=== PATIENT | female | born 1965 | race African-American/Black ===

== ENCOUNTER → 2021-03-31 15:43 | Outpatient (CLI) | payer OTHER, SELFPAY ==
--- NOTE | ~2021-03-31 | MM_ITS ---
EXAMINATION: MM screening [facility] BI w [facility] HISTORY: Screening mammogram TECHNIQUE: Craniocaudal and mediolateral oblique 3-D tomosynthesis images were obtained and synthetic 2-D images were generated. CAD analysis was submitted and interpreted. COMPARISON: 11/04/2016, 09/30/2015 bilateral screening mammogram examinations BREAST PARENCHYMAL COMPOSITION: The breasts are heterogeneously dense, which may obscure small masses . FINDINGS: There is no evidence of suspicious mass, calcification, or architectural distortion to sugg est malignancy in either breast. There has been no suspicious interval change. IMPRESSION: 1. No mammographic evidence of malignancy. 2. Recommend routine screening mammography in one year. BI-RADS Category 1: Negative Reviewed, dictated and finalized at location A. RR[facility] MACHINE
== END ==
PROVIDERS: PCP Internal Medicine; Visit Provider Obstetrics & Gynecology
DX: Z12.31 Encounter for screening mammogram for malignant neoplasm of breast (principal)
CPT/HCPCS: 77063; 77067

== ENCOUNTER 2023-01-09 10:31 | Outpatient (CLI) | payer OTHER, SELFPAY ==
[2023-01-09 19:49] LABS: Alanine Aminotransferase 26 U/L (6-35); Albumin Level 4.6 g/dL (3.5-5.1); Alkaline Phosphatase 70 U/L (38-126); Anion Gap 5 mmol/L (8-16); Aspartate Amino Transferase 67 U/L (14-36); Bilirubin,Total 0.4 mg/dL (0.2-1.3); Blood Urea Nitrogen 10 mg/dL (7-17); Calcium 9.8 mg/dL (8.4-10.2); Carbon Dioxide 31 mmol/L (22-30); Chloride 102 mmol/L (98-107); Cholesterol 240 mg/dL (0-200); Estimated Glomerular Filt Rate > 60; Glucose 97 mg/dL (65-110); HDL Direct 89 mg/dL; Potassium 4.4 mmol/L (3.4-5.0); Sodium 138 mmol/L (137-145); Triglycerides 51 mg/dL (<150)
[2023-01-09 20:00] LABS: LDL Cholesterol Direct 113 mg/dL
== END 2023-01-09 10:32 | disposition home or self-care (01) ==
LOC: ANHGOSHLAB 10:33
PROVIDERS: PCP Family Medicine; Visit Provider Family Medicine
DX: E78.00 Pure hypercholesterolemia, unspecified (principal); Z13.228 Encounter for screening for other metabolic disorders; Z13.29 Encounter for screening for other suspected endocrine disorder
CPT/HCPCS: 36415; 80053; 80061; 84443

== ENCOUNTER 2023-09-11 13:58 | Outpatient (CLI) | payer OTHER, SELFPAY ==
--- NOTE | 2023-09-11 14:53 | ECG_ITS ---
SEE SCANNED COPY FOR CONFIRMED REPORT MTDD
[2023-09-11 15:32] LABS: Basophils Percent Auto 0.4 % (0.2-1.2); Eosinophils Absolute Auto 0.1 K/mm3 (0-0.3); Eosinophils Percent Auto 1.8 % (0-4.4); Hematocrit 39.5 % (37.0-47.0); Hemoglobin 12.4 g/dL (12.0-15.0); Immature Granulocyte Absolute 0.01 K/mm3 (0.00-0.031); Immature Granulocyte Percent A 0.2 % (0-0.5); Lymphocytes Absolute Auto 1.78 K/mm3 (0.9-3.2); Lymphocytes Percent Auto 31.6 % (18.3-44.2); Mean Corpuscular HGB Conc 31.4 g/dl (32-36); Mean Corpuscular Hemoglobin 29.5 pg (26-34); Mean Platelet Volume 9.4 fl (7.4-10.4); Monocytes Absolute Auto 0.4 K/mm3 (0.1-0.6); Monocytes Percent Auto 7.5 % (2.6-8.5); Neutrophils Absolute Auto 3.3 K/mm3 (1.3-6.7); Neutrophils Percent Auto 58.5 % (45.5-73.1); Platelet Count Result 252 k/mm3 (150-375); Red Cell Distribution Width 12.8 % (11.5-14.5); White Blood Count 5.6 K/mm3 (4.5-10.0)
[2023-09-11 15:44] LABS: INR 0.9
[2023-09-11 15:45] LABS: Partial Thromboplastin Time 25.8 Seconds (22.3-36.8)
[2023-09-11 16:17] LABS: Alanine Aminotransferase 35 U/L (6-35); Albumin Level 4.8 g/dL (3.5-5.1); Alkaline Phosphatase 68 U/L (38-126); Anion Gap 6 mmol/L (4-12); Aspartate Amino Transferase 69 U/L (14-36); Bilirubin,Total 0.6 mg/dL (0.2-1.3); Blood Urea Nitrogen 12 mg/dL (7-17); Calcium 10.4 mg/dL (8.4-10.2); Carbon Dioxide 32 mmol/L (22-30); Chloride 103 mmol/L (98-107); Estimated Glomerular Filt Rate > 60; Glucose 98 mg/dL (65-110); Sodium 141 mmol/L (137-145)
== END 2023-09-11 13:59 | disposition home or self-care (01) ==
LOC: ANHSURGERY 14:03
PROVIDERS: PCP Family Medicine; Visit Provider Urology
DX: N81.2 Incomplete uterovaginal prolapse (principal); Z86.39 Personal history of other endocrine, nutritional and metabolic disease; Z01.818 Encounter for other preprocedural examination
CPT/HCPCS: 36415; 80053; 85025; 85610; 85730; 86850; 86900; 86901; 93005

== ENCOUNTER 2023-09-18 01:14 | Day surgery (SDC) | payer OTHER, SELFPAY ==
[2023-09-11 14:12] VITALS: BP 114/62; PULSE 64; RESP 16; TEMP 36.4; O2SAT 100; BMI 24.5
--- NOTE | 2023-09-11 14:28 | PC.NURSE ---
Report to the Outpatient Waiting Room, entrance under the green pavilion located off [facility], at time ___9:00AM____ on date ___09/18/23____. Planned Procedure Time: __11:00AM . Time changes happen often and if your time is changed the preop area will call you the afternoon before. - You and your visitor will be asked to self-screen and do not enter if you have any COVID symptoms. - A mask is optional within the hospital at this time. Patients may have clear liquids (water, carbonated beverages, clear teas, apple juice) until 3 hours prior to surgery with a maximum of 20 ounces. - No food from midnight until time of surgery. Take the following medications with a SIP of water the morning of surgery: NONE DO NOT STOP ANY OF YOUR OTHER PRESCRIPTION MEDICATIONS PRIOR TO SURGERY ?EXCEPT THE FOLLOWING Medications to discontinue per physician ___HOLD IBUPROFEN 7 DAYS PRE-OP PER DR ROBERSON Date to take last dose____09/10/23 Please no make-up, nail kinyarwanda, hairspray, perfume, deodorant, or body powder the day of surgery. No jewelry (including any body piercings) or valuables the day of surgery, leave them at home. Please take a shower or bath the night before, or the morning of, surgery with an antibacterial soap. Wear comfortable, loose fitting clothing. - Jewelry must be removed prior to entering the operating room. Rings and piercings that are not removed may be cut off. - The hospital will not accept responsibility for valuables. - Please leave all valuables, including medications, at home the day of surgery. If you are going home after surgery, a licensed racing car driver must drive you home. - NO public transportation without another adult if you receive anesthesia. - We recommend that an adult stay with you for 24 hours following discharge. - We also recommend that you do not drive, make important decision, drink alcoholic beverages, or take any drugs that were not prescribed by your health care provider for at least 24 hours after your discharge time. Follow any additional instructions given to you from your surgeon. If you or anyone in your household have experienced Covid symptoms in the past week, please notify your surgeon or the nurse liaison at the phone number below for possible testing. Telephone instructions given to ____PATIENT and asked if any additional questions and then verbalized understanding. Patient advised to call surgeon office or pre surgery nurse liaison [phone] if any additional questions.
--- NOTE | 2023-09-15 11:53 | PM.IMHP ---
H&P: HPI History of Present Illness Date/Time: 09/15/23 11:53 Chief Complaint: Pelvic organ prolapse Narrative: Uterine prolapse. No stress incontinence. Desires surgical intervention Review of Systems Review of Systems: All systems reviewed & are unremarkable except as noted in HPI and below PMFSH Past Medical History Medical History Acid reflux Hypercholesteremia Vaginal delivery x2 Surgical History Surgical History History of cholecystectomy Family History Family History Mother Family history of renal failure Grandparent Hypertension grandmother Other Diabetes mellitus great aunt Social History Social History Smoking status: Never smoker Alcohol intake: current Drinks per week: 2 Substance use: never Substance use type: does not use Lack of Transportation: No Lack of Food: Sometimes True Current Housing: I Do Not Have Housing Concerned About Future Housing: No Difficulty Paying Gas/Electric Bills: No Difficulty Paying for Meds: No Currently Unemployed: No Education: Master's Degree or Higher Difficulty w/ Childcare or Family Care: No Living arrangements: with family Additional living arrangements comments: SPOUSE Occupation/Education: occupation Gender identity (if verbalized by the patient): Female Spiritual care concerns: No Agree to blood products: Yes Meds Home Medications and Allergies Home Medications Medication Instructions Recorded Confirmed Type omeprazole 20 mg capsule,delayed 20 mg PO DAILY #30 caps 05/30/23 09/11/23 Rx release simvastatin 20 mg tablet 20 mg PO DAILY #90 tabs 06/05/23 09/11/23 Rx ascorbic acid (vitamin C) 1,000 mg 1 g PO DAILY 09/11/23 09/11/23 History tablet cholecalciferol (vitamin D3) 50 50 mcg PO DAILY 09/11/23 09/11/23 History mcg (2,000 unit) capsule coenzyme Q10 100 mg capsule 100 mg PO DAILY 09/11/23 09/11/23 History (CoQ-10) ibuprofen 200 mg capsule 400 mg PO Q6H PRN Pain 09/11/23 09/11/23 History fpgqllfejwiv-Wv-bbju-minerals 18 1 tablet PO DAILY 09/11/23 09/11/23 History mg-0.4 mg tablet Allergies Allergy/AdvReac Type Severity Reaction Status Date / Time venom-wasp Allergy Severe Swelling Verified 09/11/23 14:08 OXYCODONE HCL AdvReac Severe N/V Uncoded 09/11/23 14:08 Exam Narrative: No acute distress Normal breathing Alert orient x3 Cystocele to the introitus Loss of apical support a -1 Assessment and Plan Assessment and plan (1) Uterine prolapse: Code(s): N81.4 - Uterovaginal prolapse, unspecified Status: Acute Assessment and Plan: Presents for colpopexy. Understands risks of bleeding, infection, damage to surrounding organs, damage to urinary tract, vaginal mesh extrusion, urinary tract mesh erosion obstructive voiding increasing to procedure, hip and leg pain postoperative incontinence, diskitis. She agrees to proceed
[2023-09-18] VITALS (12 sets, daily range): BP systolic 109–144; BP diastolic 61–77; PULSE 41–69; RESP 12–20; TEMP 36.1–37.5; O2SAT 99–100; BMI 24.1
--- NOTE | 2023-09-18 05:01 | WPDHPUPDATE1 ---
History and Physical Update Update Date/Time: 09/18/23 05:01 History and Physical has been reviewed, including an updated exam of the patient. There are NO changes in the patient's condition. Risks, benefits, and alternatives have been discussed and questions answered. Patient agrees to proceed with procedure.
[2023-09-18] MEDS: LACTATED RINGERS 1,000 ML 30 ML IV CONT ×3 (09:30→19:45)
[2023-09-18] MEDS: ACETAMINOPHEN 500 MG TABLET 1000 MG PO (09:47)
[2023-09-18] MEDS: KETOROLAC 15 MG/ML VIAL (*BKC) IV PUSH (09:47)
--- NOTE | 2023-09-18 11:02 | WPDANESEPPF ---
Anes - Initial Pre Proc Eval Procedure: Operation Date: 09/18/23 11:00 Proposed Procedures p Robotic Sacrocolpopexy, Urethral Sling - Ketan John MD s Robotic Supracervical Hysterectomy with Bilateral Salpingo Oophorectomy - Durga Horton MD Date/Time: 09/18/23 11:02 Surgeon: Ketan John MD Pre Op Diagnosis: incomplete uterovaginal prolapse Patient Data Age: 58 Gender: F Height: 1.63 m Weight: 63.9 kg Last Vital Signs Temp 97.3 F L 09/18/23 10:25 Pulse 59 L 09/18/23 10:25 Resp 16 09/18/23 10:25 BP 132/69 09/18/23 10:25 Pulse Ox 100 09/18/23 10:25 O2 Del Method Room Air 09/18/23 10:25 Allergies Allergy/AdvReac Type Severity Reaction Status Date / Time venom-wasp Allergy Severe Swelling Verified 09/18/23 10:24 OXYCODONE HCL AdvReac Severe N/V Uncoded 09/11/23 14:08 Home Medications Medication Instructions Recorded Confirmed Type omeprazole 20 mg capsule,delayed 20 mg PO DAILY #30 caps 05/30/23 09/11/23 Rx release simvastatin 20 mg tablet 20 mg PO DAILY #90 tabs 06/05/23 09/11/23 Rx ascorbic acid (vitamin C) 1,000 mg 1 g PO DAILY 09/11/23 09/11/23 History tablet cholecalciferol (vitamin D3) 50 50 mcg PO DAILY 09/11/23 09/11/23 History mcg (2,000 unit) capsule coenzyme Q10 100 mg capsule 100 mg PO DAILY 09/11/23 09/11/23 History (CoQ-10) ibuprofen 200 mg capsule 400 mg PO Q6H PRN Pain 09/11/23 09/11/23 History nmygyckhdyfs-Fn-iyra-minerals 18 1 tablet PO DAILY 09/11/23 09/11/23 History mg-0.4 mg tablet Patient hx anesthesia problems: none Family hx anesthesia problems: none Results Review: All pre-operative results and documents have been reviewed as part of the pre-operative evaluation. [facility] Past Medical History Medical History Acid reflux Hypercholesteremia Vaginal delivery x2 Surgical History Surgical History History of cholecystectomy Family History Family History Mother Family history of renal failure Grandparent Hypertension grandmother Other Diabetes mellitus great aunt Social History Social History Smoking status: Never smoker Alcohol intake: current Drinks per week: 2 Substance use: never Substance use type: does not use Lack of Transportation: No Lack of Food: Sometimes True Current Housing: I Do Not Have Housing Concerned About Future Housing: No Difficulty Paying Gas/Electric Bills: No Difficulty Paying for Meds: No Currently Unemployed: No Education: Master's Degree or Higher Difficulty w/ Childcare or Family Care: No Living arrangements: with family Additional living arrangements comments: SPOUSE Occupation/Education: occupation Gender identity (if verbalized by the patient): Female Spiritual care concerns: No Agree to blood products: Yes Anes - Eval Final PreProcedure Day of Procedure 09/18/23 11:02 Patient weight: normal Heart: regular rate and rhythm Lungs: clear to auscultation Airway: Mallampati scale Neurological: alert and oriented Last oral intake: >/= 8 hours ASA classification: II Emergent: no Anesthetic plan: proceed Anesthesia type and monitoring: general ETT and standard monitoring Results Review: All pre-operative results and documents have been reviewed as part of the pre-operative evaluation. Informed Consent: The patient's anesthetic plan and its attendant risks and benefits were discussed with the patient/family/POA. Questions were solicited and answers provided to the satisfaction of the patient/family/POA.
--- NOTE | 2023-09-18 11:43 | WPDHPUPDATE1 ---
History and Physical Update Update Date/Time: 09/18/23 11:43 History and Physical has been reviewed, including an updated exam of the patient. There are NO changes in the patient's condition. Risks, benefits, and alternatives have been discussed and questions answered. Patient agrees to proceed with procedure.
[2023-09-18] MEDS: ceFAZolin 2 GM/D5W 50 ML 2 GM/50 ML BAG IVPB (11:49)
[2023-09-18] MEDS: metroNIDAZOLE 500 MG/ISO 100ML 500 MG/100 ML BAG 100 MG IVPB ×2 (12:19→21:03)
[2023-09-18] MEDS: BUPIVACAINE/EPINEPHRINE 0.5% 50 ML VIAL 20 ML INFILTRATE (12:31)
--- NOTE | 2023-09-18 12:53 | P.OP_ITS ---
Procedure Note - Detailed Date of Procedure 09/18/23 Pre-op Diagnosis incomplete uterovaginal prolapse Post-op Diagnosis Same Procedure Performed Robotic assisted laparoscopic supracervical hysterectomy with bilateral salpingo-oophorectomy. Surgeon Durga Horton MD Cylinder Block Hole Reliner Sunil Anesthesia General Indications Uterovaginal prolapse Findings Uterus with multiple small fibroids, normal fallopian tubes bilateral and normal appearing atrophic ovaries. Description of Procedure After informed consent was obtained she was taken to the operating room and general endotracheal anesthesia was administered. She was placed in low lithotomy position. She was and prepped and draped in sterile fashion. Montes De Oca catheter placed in bladder. Attention was turned to the vagina speculum was inse rted. Single-tooth tenaculum placed on anterior lip of the cervix. An acorn uterine manipulator was placed in the cervical canal. Attention was turned to the surgery console after Dr. John placed ports and attached robotic arms. At the surgery console, the right round ligament was ligated with vessel sealer. Anterior leaf of broad ligament dissected anteriorly. The vesicouterine peritoneum was dissected from the upper cervix. The infundibulopelvic ligament was ligated and the posterior broad ligament was dissected. The ascending uterine arteries were ligated. The right uterine artery was ligated. Attention turned to left round ligament which was ligated. The anterior leaf of broad ligament dissected anteriorly. The vesicouterine peritoneum was dissected from the upper cervix. The infundibulopelvic ligament was ligated and the posterior broad ligament was dissected. The ascending uterine arteries were ligated. The uterine arteries ligated. The uterus was amputated from the cervix with cautery. The uterus and fallopian tubes and ovaries placed in endocath bag. An near the right vessels was cauterized and hemostasis noted. Dr. John resumed his portion of the case. Estimated Blood Loss 10 Drains No Packing No Pathology Yes (uterus with right and left fallopian tubes and ovaries) Complications No immediate complications Condition Stable Disposition PACU [facility] Billing Surgery - Charge Forward: Surgery Billing
--- NOTE | 2023-09-18 14:08 | W.PM.PROC2 ---
Procedure Note - Detailed Date of Procedure 09/18/23 Pre-op Diagnosis incomplete uterovaginal prolapse Post-op Diagnosis Same Procedure Performed Robotic assisted laparoscopic sacral colpopexy Cystoscopy Surgeon Ketan John MD Anesthesia General Indications A woman with uterine prolapse without stress incontinence. She desires surgical correction. She is here for the above. She understands risks of bleeding, infection, diskitis, damage to surrounding organs, bowel injury, bowel obstruction, mesh related complications including exposure and extrusion, postoperative voiding dysfunction including incontinence and retention, need for ancillary procedures, dyspareunia, recurrence of prolapse, and other perioperative intraoperative postoperative complications. She agrees to proceed. Findings See below Description of Procedure She was correctly identified. Informed consent obtained. She from the operating room. She was given general anesthesia. She was given appropriate perioperative antibiotics. She was placed a low lithotomy position. Pressure points were padded. A time-out performed. I marked out the skin 3 fingerbreadths cephalad to the umbilicus. I anesthetized the skin. I incised the skin. I dissected down to the fascia. I grasped the fascia with Nicolas clamps. I entered the fascia sharply in a Russ type technique. I placed sutures for later fascial closure. I placed a midline trocar. I examined the abdomen. There is no sign of any injury. Under direct vision I placed 2 additional trocars in the right upper quadrant and 2 additional trocars the left upper quadrant. She was placed in steep Trendelenburg. The robot was docked. Her communications program manager completed their portion of the procedure. Please see that operative report for details. I then sat at the console. The Sizer in the vagina created plane on the anterior and posterior vaginal wall. I took great care not to injure the vagina, bladder, or rectum. I introduced the mesh into the abdomen. I sewed the anterior leaflet of mesh on the anterior vaginal wall. I sewed the posterior leaflet of mesh on the posterior vaginal wall. This was done with several sutures of 2 0 Richmond-Usama. I reflected the colon laterally. I opened the posterior peritoneum over the sacral promontory. I carried this into the cul-de-sac. I freed up the edges for later retroperitonealization. I located the anterior longitudinal ligament the sacrum. I cleaned off all fatty tissues. I then tensioned my mesh appropriately. I did a vaginal exam the bedside. I assured prolapse reduction without undue tension. I then sewed the proximal leaflet of mesh onto the anterior longitudinal ligament of the sacrum with several sutures of 2 0 Richmond-Usama. I then used a 2 0 Monocryl to completely and meticulously retroperitonealized all mesh. I allowed the colon to go back to its normal anatomic location. There is no sign of any impingement. The specimen was then removed. All ports removed. Fascia was tied down. Skin was closed with Monocryl and surgical glue. She was repositioned and prepped for cystoscopy. There was no tumors or surgical artifact. Both ureters were seen to excrete clear yellow urine. There is no surgical artifact in the bladder or urethra. I cut the excess sling material. Close incision with glue. She was awakened and transferred to PACU in stable condition. Implants Sacral colpopexy mesh Estimated Blood Loss 10 Packing No Pathology None sent Complications No immediate complications Condition Stable Disposition PACU
--- NOTE | 2023-09-18 16:33 | SUR.PHASEI ---
pt HR 40-50 sometimes drops to 39, yet does not sustain. Anesthesia aware, okay to transfer her to floor.
[2023-09-18] MEDS: ONDANSETRON INJ 4 MG/2 ML VIAL IV PUSH (16:43)
--- NOTE | 2023-09-18 16:57 | OBPPTRN ---
1626 Patient transferred to post room # 283via bed. Support person present. Oriented to unit, room, information board, admission packet and security measures. Patient verbalizes understanding.
[2023-09-18] MEDS: PANTOPRAZOLE 40 MG TABLET PO (19:43)
[2023-09-18] MEDS: ceFAZolin 1 GM/NS 50 ML 1 GM/50 ML BAG IVPB (19:46)
[2023-09-19] MEDS: ceFAZolin 1 GM/NS 50 ML 1 GM/50 ML BAG IVPB (03:50)
[2023-09-19 04:00] VITALS: BP 117/62; PULSE 65; RESP 18; TEMP 37.6; O2SAT 98
[2023-09-19] MEDS: metroNIDAZOLE 500 MG/ISO 100ML 500 MG/100 ML BAG 100 MG IVPB (04:35)
[2023-09-19] MEDS: ACETAMINOPHEN 325 MG TABLET 650 MG PO (04:40)
--- NOTE | 2023-09-19 07:22 | PM.GYNPNOP ---
[employer] - A/P Assessment and plan (1) Status post hysterectomy with oophorectomy: Code(s): Z90.710 - Acquired absence of both cervix and uterus; Z90.721 - Acquired absence of ovaries, unilateral Status: Acute Assessment and Plan: Doing well. Discussed surgery. Encourage stronger pain medication with her meal. Encourage incentive spirometer. Anticipate discharge later. Postoperative Procedures: Procedures Operation Date: 09/18/23 11:00 Actual Procedure Side Surgeon p Robotic Sacrocolpopexy Not Applicable Ketan John MD s Robotic Supracervical Hysterectomy with Bilateral Salpingo Oophorectomy Bilateral Durga Horton MD Time Spent With Patient Time: Total time spent is greater than 50% in coordination of care (as documented) at patient's floor/unit and/or counseling patient: Time with patient: less than 15 minutes [employer]- PN:Subj Post-Op Subjective Date/time seen: 09/19/23 07:22 Interval history: She c/o pain but has not taken narcotic meds due to fear of stomach upset. She has not had regular food. No flatus. Has ambulated to restroom, no chest pain or SOB or leg pain. She has not used incentive spirometer. Review of Systems Review of Systems: All systems reviewed & are unremarkable except as noted in HPI and below Cardiovascular: Cardiovascular: Reports no additional cardiovascular complaints Respiratory: Respiratory: Reports no additional respiratory complaints Gastrointestinal: Gastrointestinal: Reports belching, Denies nausea and Denies vomiting Genitourinary: Genitourinary: Reports no additional female genitourinary complaints Musculoskeletal: Musculoskeletal: Reports no additional musculoskeletal complaints Exam Const: General: comfortable and no acute distress Orientation/consciousness: oriented to person, oriented to place and oriented to time Resp: Auscultation: clear to auscultation bilaterally Cardio: Rate: regular rate Rhythm: regular rhythm GI: GI Palp: Yes Soft to palpation and No Tenderness to palpation present (GI) Auscultation: normal bowel sounds Other: Incisions healing no signs of infection Neuro: General: oriented to person, oriented to place and oriented to time Extrem: General: no calf tenderness Psych: Mental Status: mental status grossly normal [employer] - PN: Obj Data Vital Signs Vital Signs: Vital Signs - 24 hr 09/18/23 10:25 09/18/23 14:24 09/18/23 14:40 Temperature 97.3 F L 97.2 F L Pulse Rate 59 L 55 L 49 L Respiratory Rate 16 12 12 Blood Pressure 132/69 113/63 109/67 Pulse Oximetry 100 100 100 Oxygen Delivery Room Air Simple Face Mask Simple Face Mask Oxygen Flow Rate 8 8 09/18/23 14:55 09/18/23 15:10 09/18/23 15:25 Temperature Pulse Rate 48 L 46 L 45 L Respiratory Rate 12 20 17 Blood Pressure 126/61 133/76 139/77 Pulse Oximetry 100 100 100 Oxygen Delivery Simple Face Mask Room Air Room Air Oxygen Flow Rate 8 09/18/23 15:40 09/18/23 15:55 09/18/23 16:10 Temperature Pulse Rate 46 L 41 L 43 L Respiratory Rate 15 12 15 Blood Pressure 126/75 135/76 144/77 H Pulse Oximetry 100 99 99 Oxygen Delivery Room Air Room Air Room Air Oxygen Flow Rate 09/18/23 16:30 09/18/23 19:59 09/18/23 19:59 Temperature 96.9 F L 98.8 F Pulse Rate 47 L 59 L 59 L Respiratory Rate 16 16 16 Blood Pressure 141/74 H 120/65 Pulse Oximetry 100 100 100 Oxygen Delivery Room Air Oxygen Flow Rate 09/18/23 23:23 09/18/23 23:23 09/19/23 04:00 Temperature 99.5 F 99.7 F H Pulse Rate 69 69 65 Respiratory Rate 18 18 18 Blood Pressure 123/69 117/62 Pulse Oximetry 100 100 98 Oxygen Delivery Room Air Oxygen Flow Rate 09/19/23 04:00 Temperature Pulse Rate 65 Respiratory Rate 18 Blood Pressure Pulse Oximetry 98 Oxygen Delivery Room Air Oxygen Flow Rate Intake/Output Intake/Output: Intake & Output 09/16/23 09/17/23 09/18/23 09/19/23 23:59 23:59 23:59 23:59 Intake Total 1407.5 1100 Output Total
[2023-09-19 08:15] VITALS: BP 124/68; PULSE 65; RESP 16; TEMP 37.3; O2SAT 100
--- NOTE | 2023-09-19 08:50 | WPDANESPN ---
Anes - Prog Note Post-Op Date/Time: 09/19/23 08:50 Cardiovascular status: normal Respiratory status: normal Airway patency: baseline Mental status: baseline Post-Op hydration status: normal Vital Signs: Last Vital Signs Temp 37.6 C H 09/19/23 04:00 Pulse 65 09/19/23 04:00 Resp 18 09/19/23 04:00 BP 117/62 09/19/23 04:00 Pulse Ox 98 09/19/23 04:00 O2 Del Method Room Air 09/19/23 04:00 O2 Flow Rate 8 09/18/23 14:55 Pain Score (VAS): 2/10 I/O: Intake & Output 09/18/23 09/19/23 09/19/23 23:59 07:59 15:59 Intake Total 1257.5 1100 Output Total 1800 Balance 1257.5 -700 Post-procedural complaints: none Patient Feedback: Patient satisfied with anesthetic care.
--- NOTE | 2023-09-19 08:51 | WPDUROPN2 ---
Progress Note: A&P Assessment and Plan (1) Uterine prolapse: Code(s): N81.4 - Uterovaginal prolapse, unspecified Status: Acute Assessment and Plan: Underwent robotic assisted laparoscopic sacrocolpopexy on 09/18/[address] John. Tolerated procedure well and pain has been well controlled. Voiding without difficulty. Plan for discharge home later this afternoon and follow up as an outpatient. Subjective Subjective Date/Time Seen: 09/19/23 08:51 Interval history: Bee is doing very well today. No acute events noted overnight. Her pain has been well controlled. She has voided x2 without difficulty. Denies nausea, vomiting, fever, chills. She is awaiting her breakfast but reports appetite is good. Her vital signs are stable and she is afebrile. She is eager to return home. Review of Systems Review of Systems: All systems reviewed & are unremarkable except as noted in HPI and below Exam Narrative: General: Awake, alert, comfortable, no acute distress HEENT: Normocephalic, atraumatic, sclerae anicteric Respiratory: Normal respiratory effort, no accessory muscle use Abdomen: Wearing abdominal binder, nondistended, soft, nontender Skin: Normal coloration, warm and dry Neurologic: No focal neuro deficits noted Psychiatric: Appropriate mood and affect, judgment and insight intact Objective Data Vital Signs Vital Signs: Vital Signs - 24 hr 09/18/23 10:25 09/18/23 14:24 09/18/23 14:40 Temperature 97.3 F L 97.2 F L Pulse Rate 59 L 55 L 49 L Respiratory Rate 16 12 12 Blood Pressure 132/69 113/63 109/67 Pulse Oximetry 100 100 100 Oxygen Delivery Room Air Simple Face Mask Simple Face Mask Oxygen Flow Rate 8 8 09/18/23 14:55 09/18/23 15:10 09/18/23 15:25 Temperature Pulse Rate 48 L 46 L 45 L Respiratory Rate 12 20 17 Blood Pressure 126/61 133/76 139/77 Pulse Oximetry 100 100 100 Oxygen Delivery Simple Face Mask Room Air Room Air Oxygen Flow Rate 8 09/18/23 15:40 09/18/23 15:55 09/18/23 16:10 Temperature Pulse Rate 46 L 41 L 43 L Respiratory Rate 15 12 15 Blood Pressure 126/75 135/76 144/77 H Pulse Oximetry 100 99 99 Oxygen Delivery Room Air Room Air Room Air Oxygen Flow Rate 09/18/23 16:30 09/18/23 19:59 09/18/23 19:59 Temperature 96.9 F L 98.8 F Pulse Rate 47 L 59 L 59 L Respiratory Rate 16 16 16 Blood Pressure 141/74 H 120/65 Pulse Oximetry 100 100 100 Oxygen Delivery Room Air Oxygen Flow Rate 09/18/23 23:23 09/18/23 23:23 09/19/23 04:00 Temperature 99.5 F 99.7 F H Pulse Rate 69 69 65 Respiratory Rate 18 18 18 Blood Pressure 123/69 117/62 Pulse Oximetry 100 100 98 Oxygen Delivery Room Air Oxygen Flow Rate 09/19/23 04:00 Temperature Pulse Rate 65 Respiratory Rate 18 Blood Pressure Pulse Oximetry 98 Oxygen Delivery Room Air Oxygen Flow Rate Intake/Output Intake/Output: Intake & Output 09/16/23 09/17/23 09/18/23 09/19/23 23:59 23:59 23:59 23:59 Intake Total 1407.5 1100 Output Total 1800 Balance 1407.5 -700 Meds/Results Medications: Active Medications Generic Name Dose Route Start Last Admin Trade Name Freq PRN Reason Stop Dose Admin Acetaminophen 650 mg 09/18/23 16:31 09/19/23 04:40 Acetaminophen 325 Mg Tablet PO 650 mg Q4H PRN Administration Mild Pain (1-3) or Fever Hydrocodone Bitart/Acetaminophen 1 tab 09/18/23 16:31 Hydrocodone/Acetaminophen (*Crx) 5-325 Mg Tablet PO Q4H PRN Pain Rated 4-5 Cephalexin HCl 500 mg 09/19/23 17:00 Cephalexin 500 Mg Capsule PO QID BE Diphenhydramine HCl 25 mg 09/18/23 16:31 Diphenhydramine Hcl Inj 50 Mg/Ml Vial IV PUSH Q6H PRN Itching Docusate Sodium 100 mg 09/19/23 09:00 Docusate Sodium 100 Mg Capsule PO DAILY ON LICENSE OF [facility] Enoxaparin Sodium 30 mg 09/19/23 09:00 Enoxaparin 30 Mg/0.3 Ml Syringe SUB-Q DAILY ON LICENSE OF [facility] Fentanyl Citrate 25 mcg 09/18/23 11:05 Fentanyl Citr
[2023-09-19] MEDS: DOCUSATE SODIUM 100 MG CAPSULE PO (09:17)
[2023-09-19] MEDS: HYDROcodone/acetaminophen (*CRX) 5-325 MG TABLET 1 TAB PO (09:17)
[2023-09-19] MEDS: SIMVASTATIN 20 MG TABLET PO (09:17)
[2023-09-19] MEDS: ENOXAPARIN 30 MG/0.3 ML SYRINGE SUB-Q (09:18)
[2023-09-19 09:40] LABS: Estimated CRCL calculation 59 ml/min; Estimated Glomerular Filt Rate > 60
[2023-09-19 10:30] VITALS: TEMP 37
== END 2023-09-19 11:05 | disposition home or self-care (01) ==
LOC: ANHSURGERY 09:02 → ANHOB2 16:33
PROVIDERS: Obstetrics & Gynecology; PCP Family Medicine; Visit Provider Urology
PROC: (CPT 57425; principal; 2023-09-18 11:00)
PROC: (CPT 58542; 2023-09-18 11:00)
DX: N81.2 Incomplete uterovaginal prolapse (principal); N80.03 Adenomyosis of the uterus; E78.00 Pure hypercholesterolemia, unspecified; K21.9 Gastro-esophageal reflux disease without esophagitis
CPT/HCPCS: 58542; 57425; S2900 ×2; 36415; 80053; 82565; 85025; 85610; 85730; 86850; 86900; 86901; 88307; 93005; 99199; A9270; C1758; C1769; C1781; J0690; J1100; J1170; J1596; J1650; J1836; J1885; J2250; J2405; J2704; J2710; J3010; J7030; J7120

== ENCOUNTER 2023-12-27 16:06 | Outpatient (CLI) | payer OTHER, SELFPAY ==
--- NOTE | ~2023-12-27 | XR_ITS ---
EXAMINATION: XR foot RT 2V DATE: 12/27/2023 16:18 INDICATION: Stubbed right fifth toe. TECHNIQUE: 3 views of right foot were obtained. COMPARISON: None. FINDINGS: There is mild hallux valgus. No fracture. There is mild osteoarthritis of first metatarsoph alangeal joint. IMPRESSION: 1. No fracture. Reviewed, dictated and finalized at location A. IMPRESSION: 1. No fracture.
== END 2023-12-27 16:07 ==
LOC: GOSHIMG 16:06
PROVIDERS: PCP Family Medicine; Visit Provider Student in an Organized Health Care Education/Training Program
DX: S99.921A Unspecified injury of right foot, initial encounter (principal); W22.8XXA Striking against or struck by other objects, initial encounter
CPT/HCPCS: 73620

== ENCOUNTER 2024-02-07 08:13 | Outpatient (CLI) | payer OTHER, SELFPAY ==
[2024-02-07 17:08] LABS: Cholesterol 202 mg/dL (0-200); HDL Direct 61 mg/dL; Triglycerides 111 mg/dL (<150)
[2024-02-07 17:14] LABS: Vitamin D 25 Hydroxy 59.5 ng/mL
[2024-02-07 17:20] LABS: LDL Cholesterol Direct 91 mg/dL
== END 2024-02-07 08:14 | disposition home or self-care (01) ==
PROVIDERS: Podiatrist Foot & Ankle Surgery; PCP Family Medicine; Visit Provider Family Medicine
DX: E55.9 Vitamin D deficiency, unspecified (principal); E78.00 Pure hypercholesterolemia, unspecified
CPT/HCPCS: 36415; 80061; 82306

== ENCOUNTER 2024-04-12 14:36 | Outpatient (CLI) | payer OTHER, SELFPAY ==
--- NOTE | ~2024-04-12 | MM_ITS ---
EXAMINATION: MM screening [facility] BI w [facility] HISTORY: Screening TECHNIQUE: Craniocaudal and mediolateral oblique 3-D tomosynthesis images were obtained and synthetic 2-D images were generated. CAD analysis was submitted and interpreted. COMPARISON: Comparison to multiple prior studies sequentially, with oldest reviewed study dated 05/15. BREAST PARENCHYMAL COMPOSITION: Dense: The breasts are heterogeneously dense, which may obscure small masses FINDINGS: There is no evidence of suspicious mass, calcification, or architectural distortion to sugg est malignancy in either breast. There has been no suspicious interval change. IMPRESSION: 1. No mammographic evidence of malignancy. 2. Recommend routine screening mammography in one year. BI-RADS Category 1: Negative Reviewed, dictated and finalized at location B. ANT COORDINATOR
== END 2024-04-12 14:37 | disposition home or self-care (01) ==
PROVIDERS: PCP Obstetrics & Gynecology; Visit Provider Obstetrics & Gynecology
DX: Z12.31 Encounter for screening mammogram for malignant neoplasm of breast (principal)
CPT/HCPCS: 77063; 77067

== ENCOUNTER 2025-02-05 09:31 | Outpatient (CLI) | payer OTHER, SELFPAY ==
--- NOTE | ~2025-02-05 | DEXA_ITS ---
Bone Density Report Name: QAMAR ENRIQUEZ Age: 59 Sex: Female Ethnicity: White Date of : 1965 Indication: postmenopausal; screening for osteoporosis; hysterectomy; Referring Provider: MANI VASQUEZ Study: Bone densitometry was performed. Exam Date: February 05, 2025 Accession number: [id number] Bone Density: Region BMD T-score Z-score Classification AP Spine(L1-L4) 0.855 -1.7 -0.5 Osteopenia Femoral Neck (Left) 0.710 -1.3 -0.1 Osteopenia Total Hip (Left) 0.891 -0.4 0.4 Normal Femoral Neck (Right) 0.718 -1.2 0.0 Osteopenia Total Hip (Right) 0.927 -0.1 0.7 Normal Total Hip Mean 0.909 -0.3 0.6 Normal World Health Organization criteria for BMD impression classify patients as: Normal (T-score at or above -1.0), Osteopenia (T-score between -1.0 and -2.5), or Osteoporosis (T-score at or below -2.5). 10-year Fracture Risk(1): Major Osteoporotic Fracture 6.5% Hip Fracture 0.4% Reported Risk Factors: [place] (), Neck BMD=0.710, BMI=23.4 (1) FRAX(R) Version 3.08. Fracture probability calculated for an untreated patient. Fracture probability may be lower if the patient has received treatment. Clinical Information Provided by Patient: Has used the following medications: Vitamin D Has the following medical conditions: Hysterectomy Patient maximum height was 63.5 Menopause Age: 44 Drinks caffeinated beverages Onset of menses at age 15 Number of children 2 Impression: The patient has low bone mass, based on the Total Spine T-score. The patient has an estimated ten-year risk of hip fracture of 0.4% and an estimated ten-year risk of major fracture of 6.5%, based on the WHO FRAX algorithm. Discussion: BONE DENSITY IS LOW AT ONE OR MORE SKELETAL SITES. This patient's lowest T-score is low at one or more skeletal sites. It meets the World Health Organization's (WHO) criteria for ?low bone mass? (T-score between -1.0 and -2.5). The patient's 10-year risk of fracture as calculated by FRAX is less than the threshold where pharmacological therapy is recommended by the National Osteoporosis Foundation (NOF). However, all treatment decisions require clinical judgment and consideration of individual patient factors, including patient preferences, comorbidities, previous drug use, risk factors not captured in the FRAX model (e.g., frailty, falls, vitamin D deficiency, increased bone turnover, interval significant decline in bone density) and possible under or overestimation of fracture risk by FRAX. The patient should follow a healthful lifestyle (good nutrition with adequate calcium and vitamin D, and appropriate weight-bearing exercise). Follow-Up: Consider repeating this study in 2 to 3 years to reassess this patient's status, or sooner if there is some new clinical indication. Reported by: SANDRA on 02/05/2025 10:11:00 AM. Reviewed, dictated and finalized at location A.
== END 2025-02-05 09:32 | disposition home or self-care (01) ==
LOC: ANHFOHIMG 09:31
PROVIDERS: PCP Obstetrics & Gynecology; Visit Provider Nurse Practitioner Obstetrics & Gynecology
DX: Z13.820 Encounter for screening for osteoporosis (principal); M85.89 Other specified disorders of bone density and structure, multiple sites; Z78.0 Asymptomatic menopausal state; Z82.62 Family history of osteoporosis
CPT/HCPCS: 77080

== ENCOUNTER 2025-02-25 00:58 | Day surgery (SDC) | payer OTHER, SELFPAY ==
[2025-02-17 11:47] VITALS: BMI 23.6
--- OUTSIDE RECORDS SUMMARY | 2025-02-25 01:00 | XMS_ITS | Clinical Summary ---
Author Organization [facility] - [facility] Address [address] [place] [id number] Care Team Providers Care Head Charger Name Role Phone Unavailable Primary Care Provider Unavailabl e Social History Tobacco Use Types Packs/Day Years Used Date Smoking Tobacco: Never Assessed Comments Unknown Sex and Gender Information Value Date Recorded Sex Assigned at Not on file Legal Sex Female 12:50 PM CDT Gender Identity Not on file Sexual Orientation Not on file Plan of Treatment Upcoming Encounters Date Type Department Care Team (Late st Contact Info) Description 07/07/2025 8:00 AM CDT Office Visit [facility] [address] [address] [address] [place] [address] Luis Armando Young MD [address] [place] [id number] Health Maintenance Due Date Last Done Comments Cervical Cancer Screening Pa p Smear (Age 30 to 64) Every 3 Years 1965 Colorectal Cancer Screening Colonoscopy (10 Years) 1965 Annual Physical 08/19/1970 Hepatitis C 08/19/1985 DTaP, Tdap and Td Vaccines ( 1 - Tdap) 08/19/1986 Hepatitis B Vaccines (1 of 3 - 19+ 3-dose series) 08/19/1986 Cervical Cancer Screening Pa p with HPV Testing (Age 30 to 64) Every 5 Years 08/19/1997 Cervical Cancer Screening with HPV 08/19/1997 Mammogram Screening 2007 Pneumococcal Vaccine: 50+ Ye ars (1 of 1 - PCV) 08/19/2017 Zoster Vaccines (1 of 2) 08/19/2017 COVID-19 Vaccine (2024-2 6 season) 2024 Influenza Adult (#1) 2025 Hepatitis A Vaccines Aged Out No long er eligible based on patient's age to complete this topic Meningococcal B Vaccine Aged Out No l onger eligible based on patient's age to complete this topic Meningococcal Vaccine Aged Out No raquel lary eligible based on patient's age to complete this topic RSV Immunizations Under 20 Months Aged Out No longer eligible based on patient's age to complete this topic Insurance [facility]
--- OUTSIDE RECORDS SUMMARY | 2025-02-25 01:00 | XMS_ITS | Clinical Summary ---
Author Organization [facility] Address [address] [place] [address] Phone Care Team Providers Care Cdl Dedicated Truck Driver Name Role Phone Javier Castro MD Primary Care Provider + [phone] Allergies No known active allergies Medications No known medications Active Problems No known active problems Social History Tobacco Use Types Packs/Day Years Used Date Smoking Tobacco: Never Smokeless Tobacco: Never Tobacco Cessation:Counseling Given: Yes Alcohol Use Standard Drinks/Week Comments Yes 1 (1 standard drink = 0.6 oz pur e alcohol) Comments Unknown Sex and Gender Information Value Date Recorded Sex Assigned at Not on file Legal Sex Female 2:58 PM CDT Gender Identity Not on file Sexual Orientation Not on file Last Filed Vital Signs Vital Sign Reading Time Taken Comments Blood Pressure - - Pulse - - Temperature 36.7 C (98.1 F) 08/10/2018 8:55 AM CDT Respiratory Rate - - Oxygen Saturation - - Inhaled Oxygen Concentration - - Weight 61.2 kg (135 lb) 08/10/2018 8:55 AM CDT Height 160 cm (5' 3) 08/10/2018 8:55 AM CDT Body Mass Index 23.91 08/10/2018 8:55 AM CDT Plan of Treatment Health Maintenance Due Date Last Done Comments DTAP/TDAP/TD VACCINES (1 - Tdap) 08/19/1986 HEPATITIS B VACCINES (1 of 3 - 19+ 3-dose series) 07/31 HPV/Cotest (21-29) 08/19/1988 CERVICAL CANCER SCREENING 08/19/1997 HPV/Cotest (30-65) 08/19/1997 PAP SMEAR 08/19/1997 BREAST CANCER SCREENING 2007 COLORECTAL SCREENING 08/19/2012 Colorectal Cancer Screening 08/19/2012 FIT-DNA Q 3 years 08/19/2012 FIT/FOBT Q 1 year 08/19/2012 Flex Sig/CT Colonography Q 5 years 08/19/2012 ZOSTER VACCINE (1 of 2) 08/19/2017 INFLUENZA VACCINE (#1) 2024 Insurance [facility] [employer] PPO [id number] Care Teams Cdl Dedicated Truck Driver Relationship Specialty Start Date End Date Javier Castro MD [address] [place] [phone] PCP - General Internal Medicine 08/10/18
[2025-02-25 06:45] VITALS: BP 111/51; PULSE 53; RESP 18; TEMP 36.3; O2SAT 100; BMI 24.2
[2025-02-25] MEDS: LACTATED RINGERS 1,000 ML 150 ML IV CONT (06:55)
--- NOTE | 2025-02-25 07:27 | WPDANESEPPF ---
Anes - Initial Pre Proc Eval Procedure: Operation Date: 02/25/25 07:45 Proposed Procedures p Esophagogastroduodenoscopy - Jese Jaquez MD Date/Time: 02/25/25 07:27 Surgeon: Jese Jaquez MD Pre Op Diagnosis: Gastro-esophageal reflux disease without esophagit Patient Data Age: 59 Gender: F Height: 1.6 m Weight: 62 kg Last Vital Signs Temp 97.4 F L 02/25/25 06:45 Pulse 53 L 02/25/25 06:45 Resp 18 02/25/25 06:45 BP 111/51 L 02/25/25 06:45 Pulse Ox 100 02/25/25 06:45 O2 Del Method Room Air 02/25/25 06:45 Allergies Allergy/AdvReac Type Severity Reaction Status Date / Time venom-wasp Allergy Severe Swelling Verified 02/25/25 06:44 oxycodone AdvReac Severe Nausea and Verified 02/25/25 06:44 Vomiting Home Medications ?Medication ?Instructions ?Recorded ?Confirmed ?Type ascorbic acid (vitamin C) 1,000 mg 1 g PO DAILY 09/11/23 02/17/25 History tablet cholecalciferol (vitamin D3) 50 50 mcg PO DAILY 09/11/23 02/17/25 History mcg (2,000 unit) capsule coenzyme Q10 100 mg capsule 100 mg PO DAILY 09/11/23 02/17/25 History (CoQ-10) ibuprofen 200 mg capsule 400 mg PO Q6H PRN Pain 09/11/23 02/17/25 History Held on 09/18/23. Instructions: Resume on 09/20/23. jwandkscurcr-Ry-kmqh-minerals 18 1 tablet PO DAILY 09/11/23 02/17/25 History mg-0.4 mg tablet simvastatin 20 mg tablet 20 mg PO DAILY #90 tabs 04/19/24 02/17/25 Rx famotidine 20 mg tablet 20 mg PO QHS #14 tabs 12/19/24 02/17/25 Rx omeprazole 20 mg capsule,delayed 20 mg PO DAILY 02/17/25 02/17/25 History release Patient hx anesthesia problems: none Family hx anesthesia problems: none Results Review: All pre-operative results and documents have been reviewed as part of the pre-operative evaluation. [facility] Past Medical History Medical History Vaginal delivery x2 Hypercholesteremia Acid reflux Surgical History Surgical History History of cholecystectomy Family History Family History Mother Family history of renal failure Grandparent Hypertension grandmother Other Diabetes mellitus great aunt Social History Social History Social History: caffeine 1 cup coffee daily Smoking status: Never smoker Alcohol intake: current Drinks per week: 2 Substance use: never Substance use type: does not use Do You Feel Safe in your Home?: Yes Lack of Transportation: No Lack of Food: Sometimes True Current Housing: I Do Not Have Housing Concerned About Future Housing: No Difficulty Paying Gas/Electric Bills: No Difficulty Paying for Meds: No Currently Unemployed: No Education: Master's Degree or Higher Difficulty w/ Childcare or Family Care: No Living arrangements: with family Additional living arrangements comments: [place]SE Occupation/Education: occupation Gender identity (if verbalized by the patient): Female Spiritual care concerns: No Agree to blood products: Yes Anes - Eval Final PreProcedure Day of Procedure 02/25/25 07:27 Patient weight: normal Lungs: normal air movement Airway: Mallampati scale class II and special considerations (Lower perm retainer in place. ) Neurological: alert and oriented Last oral intake: >/= 8 hours ASA classification: II Emergent: no Anesthetic plan: proceed Anesthesia type and monitoring: general GIVS and standard monitoring Results Review: All pre-operative results and documents have been reviewed as part of the pre-operative evaluation. Hyperlipidemia, active w wts 5 x weekly, cardio, no cp or sob. Informed Consent: The patient's anesthetic plan and its attendant risks and benefits were discussed with the patient/family/POA. Questions were solicited and answers provided to the satisfaction of the patient/family/POA.
--- NOTE | 2025-02-25 07:43 | PM.HPGS ---
History of Present Illness History of Present Illness Consent: Risks, benefits, and alternatives have been discussed and questions answered. Patient agrees to proceed with procedure. Chief complaint: Gastro-esophageal reflux disease without esophagit Narrative: Bee Dunn is a 59 year old female with dysphagia, never had egd, using omeprazole. She has seen ENT Review of Systems Review of Systems: All systems reviewed & are unremarkable except as noted in HPI and below PMFSH Past Medical History Medical History Vaginal delivery x2 Hypercholesteremia Acid reflux Surgical History Surgical History History of cholecystectomy Family History Family History Mother Family history of renal failure Grandparent Hypertension grandmother Other Diabetes mellitus great aunt Social History Social History Social History: caffeine 1 cup coffee daily Smoking status: Never smoker Alcohol intake: current Drinks per week: 2 Substance use: never Substance use type: does not use Do You Feel Safe in your Home?: Yes Lack of Transportation: No Lack of Food: Sometimes True Current Housing: I Do Not Have Housing Concerned About Future Housing: No Difficulty Paying Gas/Electric Bills: No Difficulty Paying for Meds: No Currently Unemployed: No Education: Master's Degree or Higher Difficulty w/ Childcare or Family Care: No Living arrangements: with family Additional living arrangements comments: [employer]OUSE Occupation/Education: occupation Gender identity (if verbalized by the patient): Female Spiritual care concerns: No Agree to blood products: Yes Meds Home Medications and Allergies Home Medications ?Medication ?Instructions ?Recorded ?Confirmed ?Type ascorbic acid (vitamin C) 1,000 mg 1 g PO DAILY 09/11/23 02/17/25 History tablet cholecalciferol (vitamin D3) 50 50 mcg PO DAILY 09/11/23 02/17/25 History mcg (2,000 unit) capsule coenzyme Q10 100 mg capsule 100 mg PO DAILY 09/11/23 02/17/25 History (CoQ-10) ibuprofen 200 mg capsule 400 mg PO Q6H PRN Pain 09/11/23 02/17/25 History Held on 09/18/23. Instructions: Resume on 09/20/23. cumugehdketx-Mm-qayp-minerals 18 1 tablet PO DAILY 09/11/23 02/17/25 History mg-0.4 mg tablet simvastatin 20 mg tablet 20 mg PO DAILY #90 tabs 04/19/24 02/17/25 Rx famotidine 20 mg tablet 20 mg PO QHS #14 tabs 12/19/24 02/17/25 Rx omeprazole 20 mg capsule,delayed 20 mg PO DAILY 02/17/25 02/17/25 History release Allergies Allergy/AdvReac Type Severity Reaction Status Date / Time venom-wasp Allergy Severe Swelling Verified 02/25/25 06:44 oxycodone AdvReac Severe Nausea and Verified 02/25/25 06:44 Vomiting Vital Signs Vital Signs - 24 hr 02/25/25 06:45 Temperature 97.4 F L Pulse Rate 53 L Respiratory Rate 18 Blood Pressure 111/51 L Pulse Oximetry 100 Oxygen Delivery Room Air Exam Const: General: comfortable and no acute distress HENMT: Face/Nose/Sinus: Normal nares present Eyes: General: appearance normal, both eyes and all related structures Neck: Neck: no JVD Resp: Auscultation: clear to auscultation bilaterally Cardio: Rate: regular rate Rhythm: regular rhythm GI: Inspection: non-distended GI Palp: Yes Soft to palpation Skin: General skin exam: normal color Neuro: General: gait normal Speech: normal speech Extrem: General: normal to inspection Psych: Mental Status: mental status grossly normal Assessment and Plan Assessment and plan (1) Oropharyngeal dysphagia: Code(s): R13.12 - Dysphagia, oropharyngeal phase Status: Acute Assessment and Plan: egd with bx
--- NOTE | 2025-02-25 07:56 | S_PTH ---
PATIENT: Bee Dunn LOC: [facility]#:[id number] AGE/SX: 59/F ROOM: RE02/25/[address]: Jese Jaquez MD : 1965 BED: DIS: 02/25/2025 SPEC #: [id number] RECD: 02/25/25 09:15 STATUS: PERRY REJames #: [id number] DANE: 02/25/25 07:[address]: Jese Jaquez DEPT: [facility] Surgical RECD BY: Li Day ENTERED: 02/25/25 09:17 SP TYPE: Surgical OTHR DR: Durga Horton MD Tissues: A - Esophageal Biopsy B - Esophageal Biopsy C - Gastric Biopsy Procedures: Hematoxylin and Eosin Stain Gross and Microscopic Level 4
[2025-02-25 07:59] VITALS: BP 102/54; PULSE 62; RESP 24; O2SAT 99
[2025-02-25 08:09] VITALS: BP 109/59; PULSE 57; RESP 20; O2SAT 100
[2025-02-25 08:19] VITALS: BP 114/66; PULSE 58; RESP 18; O2SAT 100
== END 2025-02-25 08:26 | disposition home or self-care (01) ==
PROVIDERS: PCP Obstetrics & Gynecology; Referring Provider Emergency Medicine; Visit Provider Internal Medicine Gastroenterology
PROC: 0DJ08ZZ Inspection of Upper Intestinal Tract, Via Natural or Artificial Opening Endoscopic (ICD-10-PCS; CPT 43239; principal; 2025-02-25 07:45)
DX: K22.2 Esophageal obstruction (principal); K21.9 Gastro-esophageal reflux disease without esophagitis; E78.00 Pure hypercholesterolemia, unspecified; Z79.1 Long term (current) use of non-steroidal anti-inflammatories (NSAID); Z90.49 Acquired absence of other specified parts of digestive tract
CPT/HCPCS: 43239; 43249; 88305; J2003; J2704; J7120